=== PATIENT | male | born 1965 | race Caucasian/White ===

== ENCOUNTER 2025-01-17 14:00 | Outpatient (CLI) | payer BC, SELFPAY ==
[2025-01-17 19:08] LABS: Alanine Aminotransferase 24 U/L (6-50); Albumin Level 4.4 g/dL (3.5-5.1); Alkaline Phosphatase 85 U/L (38-126); Anion Gap 11 mmol/L (4-12); Aspartate Amino Transferase 27 U/L (17-59); Bilirubin,Total 0.8 mg/dL (0.2-1.3); Blood Urea Nitrogen 17 mg/dL (9-20); Calcium 9.9 mg/dL (8.4-10.2); Carbon Dioxide 26 mmol/L (22-30); Chloride 102 mmol/L (98-107); Cholesterol 186 mg/dL (0-200); Estimated Glomerular Filt Rate > 60; Glucose 109 mg/dL (65-110); HDL Direct 37 mg/dL; Potassium 3.5 mmol/L (3.4-5.0); Sodium 139 mmol/L (137-145); Triglycerides 149 mg/dL (<150)
[2025-01-17 19:16] LABS: Basophils Percent Auto 0.4 % (0.2-1.2); Eosinophils Percent Auto 0.4 % (0-4.4); Hematocrit 48.2 % (42.0-52.0); Hemoglobin 16.5 g/dL (14.0-18.0); Immature Granulocyte Absolute 0.03 K/mm3 (0.00-0.031); Immature Granulocyte Percent A 0.3 % (0-0.5); Lymphocytes Absolute Auto 2.13 K/mm3 (0.9-3.2); Lymphocytes Percent Auto 20.1 % (18.3-44.2); Mean Corpuscular HGB Conc 34.2 g/dl (32-36); Mean Corpuscular Hemoglobin 29.3 pg (26-34); Mean Corpuscular Volume 85.5 fl (80-100); Mean Platelet Volume 8.9 fl (7.4-10.4); Monocytes Absolute Auto 0.9 K/mm3 (0.1-0.6); Monocytes Percent Auto 8.7 % (2.6-8.5); Neutrophils Absolute Auto 7.4 K/mm3 (1.3-6.7); Neutrophils Percent Auto 70.1 % (45.5-73.1); Platelet Count Result 396 k/mm3 (150-375); Red Blood Count 5.64 M/mm3 (4.6-6.20); Red Cell Distribution Width 13.8 % (11.5-14.5); White Blood Count 10.6 K/mm3 (4.5-10.0)
[2025-01-17 19:19] LABS: LDL Cholesterol Direct 144 mg/dL
[2025-01-17 19:38] LABS: Prostate Specific Antigen 4.6 ng/mL (< OR = 4.0)
[2025-01-17 20:34] LABS: Free T3 3.61 pg/mL (2.71-6.16)
[2025-01-19 16:54] LABS: Lipoprotein A <10 nmol/L
== END 2025-01-17 14:01 | disposition home or self-care (01) ==
LOC: ANHGOSHLAB 14:02
PROVIDERS: PCP Internal Medicine; Visit Provider Internal Medicine
DX: F41.9 Anxiety disorder, unspecified (principal); I10 Essential (primary) hypertension; Z12.5 Encounter for screening for malignant neoplasm of prostate; Z13.29 Encounter for screening for other suspected endocrine disorder; Z13.0 Encounter for screening for diseases of the blood and blood-forming organs and certain disorders involving the immune mechanism; Z13.228 Encounter for screening for other metabolic disorders; Z82.49 Family history of ischemic heart disease and other diseases of the circulatory system
CPT/HCPCS: 36415; 80053; 80061; 82172; 83695; 84153; 84443; 84480; 84481; 85025; G0103

== ENCOUNTER 2025-02-28 10:50 | Outpatient (CLI) | payer BC, SELFPAY ==
--- OUTSIDE RECORDS SUMMARY | 2025-02-28 12:20 | XMS_ITS | Clinical Summary ---
Author Organization [facility] Address [facility] [place] [address] Care Team Providers Care [employer] Supervisor Name Role Phone Olvin Mcintosh DO Primary Care Provider [phone] Encounters Date Type Department Care Team Description 01/28/2025 8:14 AM PRECISION OPTICS TECHNICIAN - 01/28/2025 11:59 PM PRECISION OPTICS TECHNICIAN Hospital Encounter [facility] [address] [place] [address] Brock Mcgraw MD Discharge Disposition: Home or Self Care (Routine Discharge) 01/28/2025 Travel from Last 3 Months Social History Tobacco Use Types Packs/Day Years Used Date Smoking Tobacco: Never Assessed Sex and Gender Information Value Date Recorded Sex Assigned at Male 01/21/2025 3:23 PM PRECISION OPTICS TECHNICIAN Legal Sex Male 3:19 PM PRECISION OPTICS TECHNICIAN Gender Identity Not on file Sexual Orientation Not on file Plan of Treatment Health Maintenance Due Date Last Done Comments Colorectal Cancer Screening Colonoscopy (10 Years) 1965 Annual Physical 1968 Hepatitis C 1983 DTaP, Tdap and Td Vaccines ( 1 - Tdap) 1984 Zoster Vaccines (1 of 2) 2015 COVID-19 Vaccine (2023-2 5 season) 2024 Meningococcal B Vaccine Aged Out No l onger eligible based on patient's age to complete this topic Meningococcal Vaccine Aged Out No amanda ranjan eligible based on patient's age to complete this topic Pneumococcal Vaccine: Pediat rics (0 to 5 Years) and At-Risk Patients (6 to 64 Years) Aged Out No longer eligible b ased on patient's age to complete this topic RSV Immunizations Under 20 Months Aged Out No longer eligible based on patient's age to complete this topic Procedures Procedure Name Priority Date/Time Associated Diagnosis Comments CT HEART SCREEN CALCIUM SCORE PROMO Routine 01/28/2025 8:32 AM PRECISION OPTICS TECHNICIAN Screening for heart disease from Last 3 Months Results * CT HEART SCREEN CALCIUM SCORE PROMO (01/28/2025 8:32 AM PRECISION OPTICS TECHNICIAN) Anatomical Region Laterality Modality Chest Computed Tomogra phy 01/31/2025 8:05 AM PRECISION OPTICS TECHNICIAN Impressions 01/31/2025 10:22 AM PRECISION OPTICS TECHNICIAN IMPRESSION: 1. Total calcium score of 494; 86 %of similar patients have less coronary artery calcium. Coronary artery calcification is a specific marker for coronary atherosclerosis. The amount of calcification correlates with severity of coronary atherosclerosis. This is considered extensive plaque burden. High likelihood of at least one significant coronary artery stenosis. 2. Possible calcification of the aortic valve. This examination is not to be considered a substitute for a clinical examination by a physician. Coronary calcium scoring is intended to be a risk assessment test for coronary artery disease, and the results of this examination should be taken into careful consideration by the patient's own physician in the context of other factors such as relevant history, physical examination, and any other indicated investigations. All reference calcium scores contained in this report were generated from Electron Beam Tomography, or an equivalent technology. Please bear this proviso in mind when reviewing this report 2. Referred By: BROCK MCGRAW Interpreted By: Keshav Win MD, 01/31/2025 8:05 AM Narrative 01/31/2025 10:22 AM PRECISION OPTICS TECHNICIAN [address] [address] EXAMINATION: CARDIAC CT - CORONARY CALCIUM CT EXAM DATE/TIME: 01/28/2025 8:22 AM REASON FOR EXAM: SCREENING FOR HEART COMPARISON: None HISTORY: 59-year old male for coronary artery disease risk assessment. TECHNIQUE: Multislice helical CT images of the proximal coronary arteries with a computer generated calcification score. A dose lowering technique was used for this procedure, which may include, but is not limited to, dose reduction technique, automated exposure control, the use of iterative reconstruction, and ALARA (As Low As Reasonably Achievable) / Image Gently techniques. FINDINGS: AGATSTON SCORE: Left main: 66.3 LAD: 196 Circumflex: 8.51 Right coronary: 223 Total Score: 494 The total calcium score is 494. This places the patient into the 87% in comparison to a group of patient's asymptomatic for coronary artery disease with the same age and gender. This means that 86% of men at age 59 have calcium scores lower than the patient. Refer to the printed report for the graph demonstrating the population risk stratification for asymptomatic men. The amount of coronary artery calcification correlates with the severity of coronary atherosclerosis and the probability of future significant event. Calcification is not site specific for stenosis and does not identify non-calcified atherosclerotic plaque, but rather indicates the extent of atherosclerosis in the coronary arteries overall. The score may be used as an indicator for risk factor modification or additional cardiac testing. Significant change in calcium score over time may be indicative of subsequent disease development or useful as a benchmark to assess preventative programs. ADDITIONAL FINDINGS: The The heart size is grossly normal. The cardiac valves calcification of the aortic valve is possible.. The visualized thoracic aorta is normal caliber. No suspicious lung nodule, mass, consolidation. Visible upper abdomen is unremarkable. No suspicious osteolytic or osteoblastic lesions. Procedure Note Keshav Win MD - 01/31/[address] [address] EXAMINATION: CARDIAC CT - CORONARY CALCIUM CT EXAM DATE/TIME: 01/28/2025 8:22 AM REASON FOR EXAM: SCREENING FOR HEART COMPARISON: None HISTORY: 59-year old male for coronary artery disease risk assessment. TECHNIQUE: Multislice helical CT images of the proximal coronary arterieswith a computer generated calcification score. A dose lowering techniquewas used for this procedure, which may include, but is not limited to,dose reduction technique, automated exposure control, the use of iterativereconstruction, and ALARA (As Low As Reasonably Achievable) / Image Gentlytechniques. FINDINGS: AGATSTON SCORE: Left main: 66.3 LAD: 196 Circumflex: 8.51 Right coronary: 223 Total Score: 494 The total calcium score is 494. This places the patient into the 87% incomparison to a group of patient's asymptomatic for coronary arterydisease with the same age and gender. This means that 86% of men at age 59have calcium scores lower than the patient. Refer to the printed reportfor the graph demonstrating the population risk stratification forasymptomatic men. The amount of coronary artery calcification correlates with the severityof coronary atherosclerosis and the probability of future significantevent. Calcification is not site specific for stenosis and does not identify non- calcifiedatherosclerotic plaque, but rather indicates the extent of atherosclerosisin the coronary arteries overall. The score may be used as an indicator for risk factor modification oradditional cardiac testing. Significant change in calcium score over timemay be indicative of subsequent disease development or useful as a benchmark to assess preventativeprograms. ADDITIONAL FINDINGS: The The heart size is grossly normal. The cardiacvalves calcification of the aortic valve is possible.. The visualizedthoracic aorta is normal caliber. No suspicious lung nodule, mass, consolidation. Visible upper abdomen isunremarkable. No suspicious osteolytic or osteoblastic lesions. IMPRESSION: 1. Total calcium score of 494; 86 %of similar patients have less coronaryartery calcium. Coronary artery calcification is a specific marker for coronaryatherosclerosis. The amount of calcification correlates with severity ofcoronary atherosclerosis. This is considered extensive plaque burden.High likelihood of at least one significant coronary artery stenosis. 2. Possible calcification of the aortic valve. This examination is not to be considered a substitute for a clinicalexamination by a physician. Coronary calcium scoring is intended to be arisk assessment test for coronary artery disease, and the results of thisexamination should be taken into careful consideration by the patient'sown physician in the context of other factors such as relevant history,physical examination, and any other indicated investigations. Allreference calcium scores contained in this report were generated fromElectron Beam Tomography, or an equivalent technology. Please bear thisproviso in mind when reviewing this report 2. Referred By: BROCK MCGRAW Interpreted By: Keshav Win MD, 01/31/2025 8:05 AM Olvin Mcintosh DO CT Final Resul t from Last 3 Months Insurance [id number] Care Teams [employer] Supervisor Relationship Specialty Start Date End Date Olvin Mcintosh DO [address] [place], [place] [id number] PCP - General INTERNAL MEDICINE 01/21/25
--- OUTSIDE RECORDS SUMMARY | 2025-02-28 12:20 | XMS_ITS | CONTINUITY OF CARE DOCUMENT ---
Author Name karleyjesúsdaksha Address Unknown Organization [facility] Address [address] [place] [address] Phone [phone] Care Team Providers Care Core Java Engineer Name Role Phone Jorge Alberto PIERRE, Juan Unavailable NELSON MOULTON MD Unavailable [phone] NELSON MOULTON MD Unavailable [phone] INSURANCE PROVIDERS Payer name Policy type / Coverage type [place] red libertarian ID [facility] [id number]
[2025-02-28 13:42] LABS: Basophils Absolute Auto 0.1 K/mm3 (0.0-0.1); Basophils Percent Auto 0.7 % (0.2-1.2); Eosinophils Absolute Auto 0.2 K/mm3 (0-0.3); Eosinophils Percent Auto 2.2 % (0-4.4); Hematocrit 47.3 % (42.0-52.0); Hemoglobin 15.6 g/dL (14.0-18.0); Immature Granulocyte Absolute 0.05 K/mm3 (0.00-0.031); Immature Granulocyte Percent A 0.5 % (0-0.5); Lymphocytes Absolute Auto 1.87 K/mm3 (0.9-3.2); Lymphocytes Percent Auto 17.3 % (18.3-44.2); Mean Corpuscular Volume 87.9 fl (80-100); Monocytes Percent Auto 9.4 % (2.6-8.5); Neutrophils Absolute Auto 7.6 K/mm3 (1.3-6.7); Neutrophils Percent Auto 69.9 % (45.5-73.1); Platelet Count Result 406 k/mm3 (150-375); Red Blood Count 5.38 M/mm3 (4.6-6.20); Red Cell Distribution Width 13.2 % (11.5-14.5); White Blood Count 10.8 K/mm3 (4.5-10.0)
[2025-02-28 14:04] LABS: Kit Draw Collected
[2025-02-28 15:07] LABS: Prostate Specific Antigen 4.9 ng/mL (< OR = 4.0)
== END 2025-02-28 10:51 | disposition home or self-care (01) ==
LOC: ANHGOSHLAB 10:51
PROVIDERS: PCP Internal Medicine; Visit Provider Internal Medicine
DX: R97.20 Elevated prostate specific antigen [PSA] (principal); D75.1 Secondary polycythemia
CPT/HCPCS: 36415; 84153; 85025